=== PATIENT | male | born 1965 | race Caucasian/White ===

== ENCOUNTER 2021-01-02 07:01 | Emergency (ER) | payer MEDICAID ==
--- NOTE | 2021-01-02 07:25 | ED Physician Documentation ---
PD HPI ABD PAIN - Stated complaint Stated Complaint: LT SIDE PX - Chief complaint Chief Complaint: Abd Pain - History obtained from History obtained from: Patient - History of Present Illness Timing - onset: Yesterday Timing - details: Gradual onset, Still present, Waxing and waning Quality: Cramping, Aching, Pain Location: LLQ Radiation: Lower back, Left flank Improved by: Laying still. No: Eating Worsened by: Moving. No: Eating, Breathing Associated symptoms: No: Fever, Nausea, Vomiting, Diarrhea, Constipation, Loss of appetite Review of Systems Constitutional: denies: Fever, Chills Nose: denies: Rhinorrhea / runny nose, Congestion Throat: denies: Sore throat Respiratory: denies: Cough Skin: denies: Rash, Lesions Neurologic: denies: Focal weakness, Numbness PD PAST MEDICAL HISTORY - Past Medical History Cardiovascular: None Respiratory: None Endocrine/Autoimmune: None GI: None : None HEENT: None Psych: None Musculoskeletal: None Derm: None - Past Surgical History Past Surgical History: Yes - Present Medications Home Medications: Ambulatory Orders Medication Instructions Recorded Confirmed Bupropion HCl [Wellbutrin] 1 mg PO DAILY 06/16/15 06/16/15 Ibuprofen [Motrin] 800 mg PO Q8H PRN #20 tablet 06/16/15 Oxycodone HCl/Acetaminophen 1 - 2 each PO Q6H PRN #14 tablet 06/16/15 [Percocet 5-325 mg Tablet] clonazePAM [KlonoPIN] 1 mg PO DAILY 06/16/15 06/16/15 - Allergies Allergies/Adverse Reactions: Allergies Allergy/AdvReac Type Severity Reaction Status Date / Time No Known Drug Allergies Allergy Verified 01/02/21 07:07 - Social History Does the pt smoke?: Yes Smoking Status: Current every day smoker Does the pt drink ETOH?: Yes Does the pt have substance abuse?: No - Immunizations Immunizations are current?: Yes Immunizations: TDAP current <10years (2013) - POLST Patient has POLST: No PD ED PE NORMAL - Vitals Vital signs reviewed: Yes - General General: Alert and oriented X 3, No acute distress, Well developed/nourished - Cardiac Cardiac: RRR, No murmur - Respiratory Respiratory: Clear bilaterally - Abdomen Abdomen: Normal bowel sounds, Soft, Non distended, No organomegaly, Other (some tender left lower without guarding nor percussion tenderness. ) - Male Male : Deferred - Rectal Rectal: Deferred - Back Back: No spinal TTP, Other (tender left lower back lumbar level and also some CVA tender. ) - Derm Derm: Normal color, Warm and dry - Extremities Extremities: No tenderness to palpate, Normal ROM s pain, No edema, No calf tenderness / cord - Neuro Neuro: Alert and oriented X 3, No motor deficit, Normal speech Results - Vitals Vitals: Vital Signs - 24 hr 01/02/21 01/02/21 01/02/21 07:07 08:35 10:22 Temperature 36.5 C 36.6 C Heart Rate 78 60 56 L Respiratory 18 15 16 Rate Blood Pressure 150/101 H 131/99 H 140/103 H O2 Saturation 100 96 100 Oxygen O2 Source Room air - Labs Labs: Laboratory Tests 01/02/21 01/02/21 01/02/21 07:30 07:55 07:55 WBC 8.2 RBC 4.79 Hgb 15.4 Hct 45.2 MCV 94.4 H MCH 32.2 H MCHC 34.1 RDW 12.4 Plt Count 237 MPV 10.8 Neut # (Auto) 4.9 Lymph # (Auto) 2.3 [place] # (Auto) 0.7 Eos # (Auto) 0.2 Baso # (Auto) 0.0 Absolute Nucleated RBC 0.00 Nucleated RBC % 0.0 Sodium 137 Potassium 4.2 Chloride 106 Carbon Dioxide 25 Anion Gap 6.0 BUN 22 H Creatinine 0.8 Estimated GFR (MDRD) 101 Glucose 108 H Calcium 9.2 Total Bilirubin 0.6 AST 21 ALT 34 Alkaline Phosphatase 63 Total Protein 7.4 Albumin 4.4 Globulin 3.0 Albumin/Globulin Ratio 1.5 Lipase 181 H Urine Color YELLOW Urine Clarity CLEAR Urine pH 6.0 Ur Specific [place] >=1.030 H Urine Protein NEGATIVE Urine Glucose (UA) NEGATIVE Urine Ketones NEGATIVE Urine Occult Blood TRACE-INTA Urine Nitrite NEGATIVE Urine Bilirubin NEGATIVE Urine Urobilinogen 0.2 (NORMAL) Ur Leukocyte Esterase NEGATIVE Ur Microscopic Review NOT INDICATED Urine Culture Comments NOT INDICATED - Rads (name of study) abd/pelvic CT Radiology: Prelim report reviewed (no acute process), See rad report PD MEDICAL DECISION MAKING - ED course Complexity details: reviewed results (normal CT and labs/urine. ), re-evaluated patient (he declines any meds for the pain nor anti-inflammatories. ), considered differential (consider musculoskeletal, but has character of possible kidney stone, abd process. ), d/w patient Departure - Departure Disposition: 01 Home, Self Care Clinical Impression: Acute low back pain Qualifiers: Back pain laterality: left Sciatica presence: without sciatica Qualified Code(s): M54.50 - Low back pain, unspecified Condition: Stable Record reviewed to determine appropriate education?: Yes Instructions: ED Flank Pain Uncertain Cause Comments: Your urine test and blood count and CT scan are normal. No signs of kidney stones or intestinal process such as blockage or diverticulitis or tumors. Your urine is clear without any signs of infection. At this point I would presume a muscular cause of the pain. Use Tylenol ibuprofen if needed for pains and heat and gentle stretching and range of motion. I would anticipate improvement over the next few days. Recheck if not improved well in the short-term or if you develop any new symptoms that could change the thought process, such as fevers, diarrhea, bloody stools, rash, vomiting, other concerns. Discharge Date/Time: 01/02/21 10:22
[2021-01-02] MEDS ORDERED: KETOROLAC 15 MG/ML VIAL IVP STA (07:48)
[2021-01-02 08:08] LABS: BASOPHILS % (AUTO) 0.5 %; EOSINOPHILS # (AUTO) 0.2 10^3/uL (0.0-0.7); EOSINOPHILS % (AUTO) 2.5 %; HCT - HEMATOCRIT 45.2 % (42.0-52.0); HGB - HEMOGLOBIN 15.4 g/dL (14.0-18.0); LYMPHOCYTES # (AUTO) 2.3 10^3/uL (1.5-3.5); LYMPHOCYTES % (AUTO) 27.8 %; MEAN CORPUSCULAR HEMOGLOBIN 32.2 pg (27.0-31.0); MEAN CORPUSCULAR HGB CONC 34.1 g/dL (32.0-36.0); MEAN CORPUSCULAR VOLUME 94.4 fL (80.0-94.0); MEAN PLATELET VOLUME 10.8 fL (7.4-11.4); MONOCYTES # (AUTO) 0.7 10^3/uL (0.0-1.0); MONOCYTES % (AUTO) 8.6 %; NEUTROPHILS # (AUTO) 4.9 10^3/uL (1.5-6.6); NEUTROPHILS % (AUTO) 60.2 %; PLT - PLATELET COUNT 237 10^3/uL (130-450); RED BLOOD COUNT 4.79 10^6/uL (4.70-6.10); RED CELL DISTRIBUTION WIDTH 12.4 % (12.0-15.0); WHITE BLOOD COUNT 8.2 x10^3/uL (4.8-10.8)
[2021-01-02 08:21] LABS: ALBUMIN 4.4 g/dL (3.2-5.5); ALBUMIN/GLOBULIN RATIO 1.5 (1.0-2.2); BILIRUBIN,TOTAL 0.6 mg/dL (0.2-1.0); CALCIUM 9.2 mg/dL (8.5-10.3); CREATININE 0.8 mg/dL (0.6-1.2); POTASSIUM 4.2 mmol/L (3.5-5.0); TOTAL PROTEIN 7.4 g/dL (6.7-8.2)
[2021-01-02 08:23] LABS: BILIRUBIN,URINE NEGATIVE (NEGATIVE); GLUCOSE, URINE (UA) NEGATIVE (NEGATIVE); KETONES,URINE (UA) NEGATIVE (NEGATIVE); LEUKOCYTE ESTERASE, URINE NEGATIVE (NEGATIVE); NITRITE,URINE NEGATIVE (NEGATIVE); OCCULT BLOOD,URINE TRACE-INTA (NEGATIVE); PROTEIN,URINE NEGATIVE (NEGATIVE); UROBILINOGEN,URINE 0.2 (NORMAL) E.U./dL (NORMAL)
[2021-01-02 08:25] LABS: CLARITY,URINE CLEAR (CLEAR)
[2021-01-02] MEDS ORDERED: IOVERSOL 320 100 ML VIAL IVP ONE ×2 (09:05→09:17)
--- NOTE | 2021-01-02 09:05 | CT Report ---
PROCEDURE: Abdomen/Pelvis W INDICATIONS: LLQ Abdominal pain, diverticulitis suspected CONTRAST: IV CONTRAST: Optiray 320 ml: 100 PO CONTRAST: *NO PO CONTRAST TECHNIQUE: After the administration of IV contrast, 5 mm thick sections acquired from the diaphragms to the symp hysis. 5 mm thick coronal and sagittal reformats were acquired. For radiation dose reduction, the f ollowing was used: automated exposure control, adjustment of mA and/or kV according to patient size. COMPARISON: None. FINDINGS: Inferior chest: No focal consolidation, pleural effusion, or pneumothorax. No cardiomegaly or perica rdial effusion. Gallbladder: The gallbladder is distended with a smooth thin wall. Biliary tree: No intra-or extrahepatic biliary ductal dilatation. Liver: The liver demonstrates normal enhancement, size, and contour. Mild heterogeneous attenuation. Spleen: Normal enhancement, size and morphology is seen. Pancreas: Normal morphology without masses or inflammatory changes. Adrenals: Normal size without masses. Kidneys/ureters: Normal size and morphology. No solid masses or hydronephrosis. Vasculature: No evidence of aneurysm or other significant vascular pathology. Lymphatic system: No pathologic enlargement by size criteria. GI/mesentery: No evidence of intestinal obstruction. Sigmoid of tuberculosis. Normal appendix. Peritoneum/Retroperitoneum: No free intraperitoneal gas or large collection. Urinary bladder: The urinary bladder is distended with a smooth thin wall. Pelvic organs: No significant abnormality. Bones/soft tissues: No significant abnormality. Moderate to advanced disc height loss at L5-S1 with v acuum phenomena. IMPRESSION: 1.No acute intradermal/pelvic abnormality. Reviewed by: Marco Magaña MD on 01/02/2021 9:04 AM PDT Approved by: Marco Magaña MD on 01/02/2021 9:04 AM PDT Station ID: [id number]
[2021-01-02 10:23] VITALS: BP 140/103
== END 2021-01-02 10:22 | disposition home or self-care (01) ==
LOC: ED 07:01
DX: M54.50 Low back pain, unspecified (principal); R10.32 Left lower quadrant pain; F17.200 Nicotine dependence, unspecified, uncomplicated
CPT/HCPCS: 36415; 74177; 80053; 81003; 83690; 85025; 96374; 99284; Q9967; 81001; 87086

== ENCOUNTER 2022-03-19 09:58 | Outpatient (CLI) | payer MEDICAID ==
--- NOTE | 2022-03-19 17:34 | XRAY Report ---
PROCEDURE: Chest 2 View X-Ray INDICATIONS: FOCAL PNEUMONIA TECHNIQUE: 2 views of the chest were acquired. COMPARISON: None FINDINGS: Surgical changes and devices: None. Lungs and pleura: No pleural effusions or pneumothorax. Lungs are clear. Mediastinum: Mediastinal contours are normal. Heart size is normal. Bones and chest wall: No suspicious bony abnormalities. Soft tissues appear unremarkable. IMPRESSION: No acute cardiopulmonary pathology. Reviewed by: Julio Grey MD on 03/19/2022 5:32 PM [facility] Approved by: Julio Grey MD on 03/19/2022 5:32 PM [facility] Station ID: [id number]
== END 2022-03-19 09:59 | disposition home or self-care (01) ==
LOC: DI.S 09:58
PROVIDERS: ATTEND Emergency Medicine
DX: J18.8 Other pneumonia, unspecified organism (principal)

== ENCOUNTER 2022-11-04 00:12 | Emergency (ER) | payer MEDICAID ==
[2022-11-04 00:24] VITALS: BP 135/86; O2SAT 97
[2022-11-04] MEDS ORDERED: AMOX/CLAV 875 MG/125 MG TABLET PO STA (00:26)
--- NOTE | 2022-11-04 00:29 | ED Physician Documentation ---
PD HPI HEENT - Stated complaint Stated Complaint: TOOTH ACHE - Chief complaint Chief Complaint: Heent - History obtained from History obtained from: Patient - Additional information Additional information: Patient is a 56-year-old male presenting for evaluation of right-sided upper molar dental pain which has been present for the past 3 days. He reports mild associated swelling. No fevers. He last used ibuprofen approximately 12 hours ago. No trouble swallowing or speaking. He has been to [facility] in the past but has not contacted them regarding this dental issue. Review of Systems Constitutional: denies: Fever Throat: reports: Dental pain / toothache Cardiac: denies: Chest pain / pressure Respiratory: denies: Dyspnea PD PAST MEDICAL HISTORY - Past Medical History Cardiovascular: None Respiratory: None Endocrine/Autoimmune: None GI: None : None HEENT: None Psych: None Musculoskeletal: None Derm: None - Past Surgical History Past Surgical History: Yes - Present Medications Home Medications: Ambulatory Orders Medication Instructions Recorded Confirmed Bupropion HCl [Wellbutrin] 1 mg PO DAILY 06/16/15 06/16/15 Ibuprofen [Motrin] 800 mg PO Q8H PRN #20 tablet 06/16/15 Oxycodone HCl/Acetaminophen 1 - 2 each PO Q6H PRN #14 tablet 06/16/15 [Percocet 5-325 mg Tablet] clonazePAM [KlonoPIN] 1 mg PO DAILY 06/16/15 06/16/15 Amox/Clav 875/125 [Augmentin] 1 each PO Q12H #20 tablet 11/04/22 - Allergies Allergies/Adverse Reactions: Allergies Allergy/AdvReac Type Severity Reaction Status Date / Time No Known Drug Allergies Allergy Verified 01/02/21 07:07 - Social History Does the pt smoke?: Yes Smoking Status: Current every day smoker Does the pt drink ETOH?: Yes Does the pt have substance abuse?: No - Immunizations Immunizations are current?: Yes Immunizations: TDAP current <10years (2013) - POLST Patient has POLST: No PD ED PE NORMAL - General General: Alert and oriented X 3, No acute distress, Well developed/nourished - HEENT HEENT: Atraumatic, Moist mucous membranes, Pharynx benign, Other (No oral swelling or submandibular swelling; Mild swelling to right buccal mucosa, no fluctuance or palpable abscess, No erythema) - Neck Neck: Supple, no meningeal sign - Cardiac Cardiac: RRR - Respiratory Respiratory: No respiratory distress, Clear bilaterally - Derm Derm: Warm and dry - Neuro Neuro: Normal speech PD ED PE EXPANDED - HEENT HEENT Visual: 1 - tenderness Results - Vitals Vitals: Vital Signs - 24 hr 11/04/22 00:17 Temperature 36.2 C L Heart Rate 78 Respiratory 16 Rate Blood Pressure 135/86 H O2 Saturation 97 Oxygen O2 Source Room air PD Medical Decision Making - ED course ED course: Patient is a 56-year-old male presenting for evaluation of dental pain. He has mild soft tissue swelling to the buccal mucosa. No signs of deep space infection or airway compromise. Patient declines anything for pain. He is requesting antibiotics and I have started him on Augmentin. He understands importance of dental follow-up as well as concerning symptoms to return for. Departure - Departure Disposition: 01 Home, Self Care Clinical Impression: Dental infection Condition: Stable Instructions: ED Abscess Dental Prescriptions: Amox/Clav 875/125 [Augmentin] 1 each PO Q12H #20 tablet Comments: I have started you on an antibiotic for a dental infection and I have sent this prescription to [facility] in [place]. Please make sure to complete the course of the antibiotics. Return to the emergency department with worsening symptoms such as increased swelling, any trouble swallowing or any new concerns. It is very important that you follow-up with a dentist. When it comes to dental problems like yours, the emergency department can only offer a short-term solution to your long-term problem. A couple of low cost options for dental care include: [facility] in [place], calls [phone] for an appointment Or [facility] in [place], call [phone] for an appointment.
== END 2022-11-04 00:49 | disposition home or self-care (01) ==
LOC: ED 00:12
DX: K04.7 Periapical abscess without sinus (principal); Z79.899 Other long term (current) drug therapy; F17.200 Nicotine dependence, unspecified, uncomplicated
CPT/HCPCS: 99282; 99283; A9270

== ENCOUNTER 2023-11-09 07:00 | Outpatient (CLI) | payer MEDICAID ==
--- NOTE | 2023-11-10 15:54 | XRAY Report ---
PROCEDURE: Chest 2V INDICATIONS: RIGHT LOWER ZONE PNEUMONIA TECHNIQUE: 2 views of the chest were acquired. COMPARISON: None. FINDINGS: Surgical changes and devices: None. Lungs and pleura: No pleural effusions or pneumothorax. Lungs are clear. Mediastinum: Mediastinal contours appear normal. Heart size is normal. Bones and chest wall: No suspicious bony lesions. Overlying soft tissues appear unremarkable. IMPRESSION: No acute cardiopulmonary process. Reviewed by: Nick Su MD on 11/10/2023 3:53 PM PDT Approved by: Nick Su MD on 11/10/2023 3:53 PM PDT Station ID: [id number]
== END 2023-11-09 23:59 | disposition home or self-care (01) ==
LOC: DI.S 07:00
PROVIDERS: ATTEND Emergency Medicine
DX: J18.9 Pneumonia, unspecified organism (principal)